=== PATIENT | female | born 1980 | race Caucasian/White ===

== ENCOUNTER 2017-11-14 21:54 | Emergency (ER) | payer MEDICAID ==
[~2017-11-14] VITALS: Ht 152.4 cm; Wt 49.9 kg
[2017-11-14 21:58] VITALS: Ht 152.4 cm; Wt 49.9 kg
[2017-11-14 22:38] LABS: BASOPHIL % 0.4 % (0-2); PLATELET COUNT 365 x10^3mcL (130-400); RED CELL DISTRIBUTION WIDTH 12.2 % (11.5-14.5)
[2017-11-14 22:45] LABS: microscopic required? YES; urine erythrocyte NEGATIVE (NEGATIVE)
[2017-11-14 22:48] LABS: CALCIUM 9.2 mg/dL (8.5-10.1); CHLORIDE SERUM 98 mmol/L (98-107); CREATININE SERUM 0.8 mg/dL (0.6-1.0); GFR1 > 60 mL/min; GLUCOSE SERUM 120 mg/dL (74-106); POTASSIUM SERUM 3.5 mmol/L (3.5-5.1); SODIUM SERUM 134 mmol/L (136-145)
[2017-11-14 22:54] LABS: ALKALINE PHOSPHATASE 94 U/L (46-116); ALT/SGPT 50 U/L (14-59); AST/SGOT 30 U/L (15-37); BILIRUBIN TOTAL 0.34 mg/dL (0.20-1.00); LIPASE 171 IU/L (73-393)
[2017-11-14 22:57] LABS: ALBUMIN 2.9 g/dL (3.4-5.0); CHOLESTEROL 262 mg/dL (<200); CHOLESTEROL/HDL RATIO 3.7; HDL CHOLESTEROL 71 mg/dL (40-60); TOTAL PROTEIN, SERUM 8.3 g/dL (6.4-8.2); TRIGLYCERIDES 283 mg/dL (<150)
[2017-11-15 00:46] VITALS: BP 109/71
== END 2017-11-15 00:46 | disposition home or self-care (01) ==
LOC: ED 21:54
PROVIDERS: Specialist
DX: O21.9 Vomiting of pregnancy, unspecified (principal); O23.42 Unspecified infection of urinary tract in pregnancy, second trimester; O99.612 Diseases of the digestive system complicating pregnancy, second trimester; K92.9 Disease of digestive system, unspecified; E11.9 Type 2 diabetes mellitus without complications; Z3A.20 20 weeks gestation of pregnancy
CPT/HCPCS: 83880; J2405; J7030; Q0092

== ENCOUNTER 2017-11-17 17:29 | Emergency (ER) | payer MEDICAID ==
[~2017-11-17] VITALS: Ht 154.9 cm; Wt 49.0 kg
[2017-11-17 17:39] VITALS: Ht 154.9 cm; Wt 49.0 kg
[2017-11-17 18:46] LABS: BASOPHIL % 0.3 % (0-2); PLATELET COUNT 365 x10^3mcL (130-400); RED CELL DISTRIBUTION WIDTH 12.7 % (11.5-14.5)
[2017-11-17 18:56] LABS: CALCIUM 9.3 mg/dL (8.5-10.1); CARBON DIOXIDE 28.6 mmol/L (21-32); CHLORIDE SERUM 100 mmol/L (98-107); CREATININE SERUM 0.9 mg/dL (0.6-1.0); GFR1 > 60 mL/min; GLUCOSE SERUM 147 mg/dL (74-106); POTASSIUM SERUM 3.7 mmol/L (3.5-5.1); SODIUM SERUM 136 mmol/L (136-145)
[2017-11-17 19:01] LABS: ALKALINE PHOSPHATASE 95 U/L (46-116); ALT/SGPT 52 U/L (14-59); AST/SGOT 36 U/L (15-37); BILIRUBIN TOTAL 0.26 mg/dL (0.20-1.00); LIPASE 169 IU/L (73-393); TOTAL PROTEIN, SERUM 8.2 g/dL (6.4-8.2)
[2017-11-17 19:07] LABS: ALBUMIN 2.9 g/dL (3.4-5.0)
[2017-11-17 20:40] VITALS: BP 111/79
== END 2017-11-17 20:40 | disposition home or self-care (01) ==
LOC: ED 17:29
PROVIDERS: Emergency Medicine
DX: O21.0 Mild hyperemesis gravidarum (principal); Z3A.19 19 weeks gestation of pregnancy; K82.8 Other specified diseases of gallbladder
CPT/HCPCS: J2405; J2765; J7030

== ENCOUNTER 2017-12-11 22:09 | Emergency (ER) | payer MEDICAID ==
[2017-12-12 00:13] LABS: UA SPECIFIC GRAVITY 1.015 (1.005-1.035); microscopic required? YES; urine erythrocyte NEGATIVE (NEGATIVE)
[2017-12-12 01:48] VITALS: BP 129/67
== END 2017-12-12 01:48 | disposition home or self-care (01) ==
LOC: ED 22:09
PROVIDERS: Emergency Medicine
DX: J06.9 Acute upper respiratory infection, unspecified (principal); E11.9 Type 2 diabetes mellitus without complications
CPT/HCPCS: Q0162

== ENCOUNTER 2018-02-05 18:38 | Emergency (ER) | payer MEDICAID ==
[~2018-02-05] VITALS: Ht 152.4 cm; Wt 51.7 kg
[2018-02-05 19:06] VITALS: Ht 152.4 cm; Wt 51.7 kg
[2018-02-05 19:56] LABS: BASOPHIL % 0.2 % (0-2); PLATELET COUNT 303 x10^3mcL (130-400); RED CELL DISTRIBUTION WIDTH 12.2 % (11.5-14.5)
[2018-02-05 20:01] LABS: CARBON DIOXIDE 26.7 mmol/L (21-32); CHLORIDE SERUM 98 mmol/L (98-107); CREATININE SERUM 0.8 mg/dL (0.6-1.0); GFR1 > 60 mL/min; GLUCOSE SERUM 119 mg/dL (74-106); POTASSIUM SERUM 3.4 mmol/L (3.5-5.1); SODIUM SERUM 134 mmol/L (136-145)
[2018-02-05 20:06] LABS: ALBUMIN 2.5 g/dL (3.4-5.0); ALKALINE PHOSPHATASE 205 U/L (46-116); ALT/SGPT 17 U/L (14-59); AST/SGOT 21 U/L (15-37); BILIRUBIN TOTAL 0.3 mg/dL (0.20-1.00); TOTAL PROTEIN, SERUM 8.6 g/dL (6.4-8.2)
[2018-02-05 21:06] VITALS: BP 136/89
== END 2018-02-05 21:06 | disposition home or self-care (01) ==
LOC: ED 18:38
PROVIDERS: Emergency Medicine
DX: O21.0 Mild hyperemesis gravidarum (principal); O24.913 Unspecified diabetes mellitus in pregnancy, third trimester; Z3A.30 30 weeks gestation of pregnancy
CPT/HCPCS: J2405; J7030